=== PATIENT | male | born 1980 | race American Indian/Alaskan Native ===

== ENCOUNTER 2017-10-26 12:51 | Emergency (ER) | payer SELFPAY ==
[2017-10-26 13:32] VITALS: BP 120/75
== END 2017-10-26 18:06 | disposition left against medical advice (07) ==
LOC: ED 12:51
DX: Z53.21 Procedure and treatment not carried out due to patient leaving prior to being seen by health care provider (principal)

== ENCOUNTER 2017-10-26 20:11 | Emergency (ER) | payer SELFPAY ==
[2017-10-26 20:46] VITALS: BP 118/71
== END 2017-10-27 00:35 | disposition left against medical advice (07) ==
LOC: ED 20:11
DX: M54.9 Dorsalgia, unspecified (principal); Z53.21 Procedure and treatment not carried out due to patient leaving prior to being seen by health care provider